=== PATIENT | male | born 1990 | race Hispanic/Latino ===

== ENCOUNTER 2017-04-18 01:02 | Emergency (ER) | payer OTHER ==
[2017-04-18 01:35] VITALS: BMI 25.7
[2017-04-18 01:36] VITALS: PULSE 72; RESP 16; TEMP 97.4; O2SAT 100
--- NOTE | 2017-04-18 01:53 | ED PDOC ---
HPI: Back Time Seen by Provider: 04/18/17 01:19 Chief Complaint (Nursing): Upper Extremity Problem/Injury Chief Complaint (Provider): Back Pain History Per: Patient History/Exam Limitations: no limitations Onset/Duration Of Symptoms: Days (x2) Current Symptoms Are (Timing): Still Present Associated Symptoms: None Additional Complaint(s): 26 year old male presents to ED with complaints of right sided pectoralis pain and right sided upper back pain x2 days. Notes that he lifts weights and believes he may have strained a muscle. Confirms that he took 2 Advil yesterday morning and 2 more in the evening without mitigation of symptoms. (+) difficulty breathing secondary to pain. PCP: None - Risk Factors AAA Risk Factors: Neg: Older Than 49 Years Of Age Past Medical History Reviewed: Historical Data, Nursing Documentation, Vital Signs Vital Signs: Last Vital Signs Temp 97.4 F L 04/18/17 01:33 Pulse 72 04/18/17 01:33 Resp 16 04/18/17 01:33 BP 163/132 H 04/18/17 01:33 Pulse Ox 100 04/18/17 01:33 - Medical History PMH: No Chronic Diseases - Family History Family History: States: No Known Family Hx - Social History Drugs: Denies - Home Medications Home Medications: Ambulatory Orders Medication Instructions Recorded Cyclobenzaprine [Cyclobenzaprine 10 mg PO BID #15 tab 04/18/17 HCl] Ibuprofen [Motrin Tab] 600 mg PO Q6 #30 tab 04/18/17 Lidocaine 1 each TP DAILY #5 adh..patch 04/18/17 - Allergies Allergies/Adverse Reactions: Allergies Allergy/AdvReac Type Severity Reaction Status Date / Time No Known Allergies Allergy Verified 04/18/17 01:34 Review of Systems ROS Statement: Except As Marked, All Systems Reviewed And Found Negative Respiratory: Positive for: Shortness of Breath (secondary to pain) Musculoskeletal: Positive for: Back Pain (right upper back pain), Other ((+) right sided pectoralis pain) Physical Exam - Reviewed Nursing Documentation Reviewed: Yes Vital Signs Reviewed: Yes - Physical Exam Appears: Positive for: Non-toxic Skin: Positive for: Normal Color, Warm, Dry Neck: Positive for: Normal Cardiovascular/Chest: Positive for: Regular Rate, Rhythm. Negative for: Chest Non Tender (point tenderness to right pectoralis) Respiratory: Negative for: Respiratory Distress Gastrointestinal/Abdominal: Positive for: Soft. Negative for: Tenderness Back: Positive for: Other (tenderness to right upper trepezium). Negative for: Normal Inspection Extremity: Positive for: Normal ROM (full ROM to right upper extremity), Other ( (-) crepitus, step-off). Negative for: Tenderness - ECG O2 Sat by Pulse Oximetry: 100 (RA) Pulse Ox Interpretation: Normal Medical Decision Making Medical Decision Makin Initial impression: muscular strain v spasm Initial plan: * CXR * Flexeril 10mg PO * Toradol 30mg IM * Re-eval 0243 Upon re-evaluation, patient confirms that he is feeling better. Patient is stable for discharge home. Scribe Attestation: Documented by Aminata Valencia acting as a scribe for Mark Mcleod MD. Scribe Attestation: All medical record entries made by the Scribe were at my direction and personally dictated by me. I have reviewed the chart and agree that the record accurately reflects my personal performance of the history, physical exam, medical decision making, and the department course for this patient. I have also personally directed, reviewed, and agree with the discharge instructions and disposition. Disposition - Clinical Impression Clinical Impression: Musculoskeletal chest pain - Disposition Referrals: Mickey Killian [Outside] Disposition: Routine/Home Disposition Time: 02:43 Condition: STABLE Additional Instructions: Do not lift weights for 1 week. Prescriptions: Cyclobenzaprine [Cyclobenzaprine HCl] 10 mg PO BID #15 tab Ibuprofen [Motrin Tab] 600 mg PO Q6 #30 tab Lidocaine 1 each TP DAILY #5 adh..patch Instructions: Musculoskeletal Pain (ED), Muscle Spasm (ED) Forms: [employer] ([place])
[2017-04-18 02:52] VITALS: BP 108/55
--- NOTE | 2017-04-18 08:25 | RAD ---
HISTORY: R sided CP COMPARISON: No prior. TECHNIQUE: Chest PA and lateral FINDINGS: LUNGS: No active pulmonary disease. PLEURA: No significant pleural effusion identified. No pneumothorax apparent. CARDIOVASCULAR: Normal. OSSEOUS STRUCTURES: No significant abnormalities. VISUALIZED UPPER ABDOMEN: Normal. OTHER FINDINGS: None. IMPRESSION: No acute cardiopulmonary disease appreciated.
--- NOTE | 2017-04-18 18:23 | CARD ---
APPROVED REPORT EKG Measurement Heart [id number] <Conclusion> Normal sinus rhythm with sinus arrhythmia Normal ECG
== END 2017-04-18 02:52 | disposition home or self-care (01) ==
LOC: H.ER 01:02
DX: R07.89 Other chest pain (principal)
CPT/HCPCS: 71020; 93005; 96372; 99282; J1885